=== PATIENT | male | born 1960 | race Caucasian/White ===

== ENCOUNTER → 2024-03-21 13:07 | Outpatient (REF) | payer BC, SELFPAY | LOC: RCS 13:07 | PROVIDERS: ATTENDING PHYSICIAN Internal Medicine Cardiovascular Disease; FAMILY PHYSICIAN Family Medicine | DX: I67.9 Cerebrovascular disease, unspecified (principal); I42.8 Other cardiomyopathies; I42.0 Dilated cardiomyopathy | CPT/HCPCS: 93306; Q9950 ==

== ENCOUNTER → 2025-05-10 13:03 | Outpatient (REF) | payer BC, SELFPAY ==
--- NOTE | 2025-05-10 14:08 | CARDSERVLU ---
Echocardiogram with Lumason completed after protocol screening completed. Allergies verified.
Patent IV site: __Left AC___
IV site flushed with 0.9% NaCl pre and post administration.
Diluted bolus method utilized to enhance visualization of ventricular [place].
Total volume given: ___6.0_ mL
Patient tolerated all procedures well without complications.
#22 dulce placed left AC. Lumason given. INT d/c'd. pressure held. No bleeding noted.
== END ==
LOC: RCS 13:03
PROVIDERS: ATTENDING PHYSICIAN Internal Medicine Cardiovascular Disease; FAMILY PHYSICIAN Family Medicine
DX: I50.20 Unspecified systolic (congestive) heart failure (principal)
CPT/HCPCS: 93306; Q9950